=== PATIENT | female | born 1945 | race Caucasian/White ===

== ENCOUNTER 2019-04-01 10:45 | Inpatient (IN) | payer MEDICARE, SELFPAY ==
--- NOTE | 2019-04-01 11:47 | RAD ---
EXAM: Single view of the chest HISTORY: Altered mental status with vision changes COMPARISON: None FINDINGS: Single view of the chest shows a normal sized cardiomediastinal silhouette. There is no linnea dence of consolidation, mass, or pleural effusion. The bones are unremarkable. IMPRESSION: No evidence of acute cardiopulmonary disease
--- NOTE | 2019-04-01 11:52 | CT ---
EXAM: CT brain without contrast HISTORY: Blindness COMPARISON: None TECHNIQUE: Multiple contiguous axial images were obtained and a CT of the brain without contrast. FINDINGS: The brain is normal in morphology and attenuation without focal lesions or confluent areas of infarction. There is no evidence of hydrocephalus, intracranial hemorrhage, or extra-axial fluid collection. The calvarium and overlying soft tissues are unremarkable. The visualized paranasal sinuses and masto id air cells are well aerated. IMPRESSION: No evidence of acute intracranial abnormality
[2019-04-01 12:32] LABS: #Eosinphils 0.3 thou/uL (0.0-0.7); #Lymphocytes 1.7 thou/uL (1.20-3.40); #Monocytes 0.6 thou/uL (0.11-0.59); #Neutrophils 1.6 thou/uL (1.40-6.50); %Eosinophils 6.3 % (0.0-10.0); %Lymphocytes 40.8 % (21.0-51.0); %Monocytes 14.5 % (0.0-10.0); %Neutrophils 37.3 % (42.0-75.0); Hemoglobin 12.5 g/dL (12.0-16.0); Mean Corpuscular HGB CONC 33.8 g/dL (32.0-36.0); Mean Corpuscular Hemoglobin 31.3 pg (27.0-31.0); Mean Corpuscular Volume 92.7 fL (78.0-98.0); Mean Platelet Volume 6.2 fL (7.4-10.4); Platelet Count 198 thou/uL (130-400); RBC Distribution Width 11.7 % (11.5-14.5); Red Blood Cell (RBC) Count 3.99 mill/uL (4.20-5.40); White Blood Cell (WBC) Count 4.2 thou/uL (4.8-10.8)
[2019-04-01 12:43] LABS: Bacteria/HPF 4+ HPF (None Seen); Bilirubin Negative (Negative); Blood, Urine Negative (Negative); Clarity Clear (Clear); Glucose, Urine (Dipstick) Normal (Negative); Leukocyte 500 Leu/uL (Negative); Nitrite 2+ (Negative); Protein, Urine (Dipstick) Negative (Neg-Trace); Squamous Epithelial 0-3 HPF (0-3); Urobilinogen Normal mg/dL (Less than 2); WBC/HPF Greater than 50 HPF (0-3)
[2019-04-01 13:00] LABS: ALT (SGPT) 10 U/L (8-55); AST (SGOT) 14 U/L (5-34); Albumin 3.9 g/dL (3.4-4.8); Alkaline Phosphatase 51 U/L (40-110); Anion Gap 12 mmol/L (10-20); BUN (Urea Nitrogen) 17 mg/dL (9.8-20.1); Bilirubin, Total 0.3 mg/dL (0.2-1.2); Calc. Creatinine Clearance 0 mL/min (70-130); Carbon Dioxide 24 mmol/L (23-31); Chloride 109 mmol/L (98-107); Estimated GFR-MDRD 74; Glucose 91 mg/dL (83-110); Potassium 4.2 mmol/L (3.5-5.1); Protein, Total 6.9 g/dL (6.0-8.3); Sodium 141 mmol/L (136-145)
[2019-04-01] MEDS ORDERED: cefTRIAXone\\ROCEPHIN 2 GM VIAL ONE (14:20)
[2019-04-01] MEDS ORDERED: Clopidogrel Bisulfate 75 MG TAB ONE (14:50)
[2019-04-01] MEDS ORDERED: Ondansetron PF 4 MG/2 ML Vial IVP PRN ×2 (15:18→16:49)
[2019-04-01] MEDS ORDERED: Ondansetron ODT 4 MG TAB SL PRN (15:18)
[2019-04-01 15:51] VITALS: BMI 32.3
[2019-04-01] MEDS ORDERED: Ondansetron ODT 4 MG TAB PO PRN (16:49)
[2019-04-01] MEDS ORDERED: Acetaminophen 650 MG Suppository PR PRN (16:49)
--- NOTE | 2019-04-01 18:37 | HP ---
TIME OF ADMISSION: 1600. PRIMARY CARE PHYSICIAN: None. CHIEF COMPLAINT: Intermittent loss of vision x2 weeks. HISTORY OF PRESENT ILLNESS: Ms. Banerjee is a 73-year-old woman with a known history of psoriasis, who does not follow with a primary care physician, presented to the emergency department complaining of having trouble seeing. The patient states this has been going on for the last 2 weeks and states she suddenly has trouble seeing and is unable to pinpoint how long it lasts or how often it is occurring. The patient is somewhat a poor historian and tangential. On initial assessment, she first asked if I could call a long term to get her placement. The patient states she has a history of a growth on her left upper eyelid and states this tumor was removed in the early . She states another similar growth has developed in the left upper eyelid, however, it is extending down and covering her pupil. The patient closed her eyes to show me and then suddenly started saying she could not see again. The patient's eyes were shut, but she stated she felt as if they were open and that she was seeing black. I assisted the patient with opening her eyes. She states it feels as if her eyes are "glued shut." She does not have any drainage or watering from her eyes. No erythema or swelling. She states she feels her eyes get stuck and when it happens to her left eye, happens to her right eye as well. It appears she does not have complete loss of vision, but rather difficulty opening her eyes. She does states she has blurred vision and does not recall the last time she saw her business intelligence analyst. Does not recall the last time she had her eyeglasses changed. The patient reports having occasional headaches. Denies any nausea or vomiting. Reports having diarrhea greater than 1 week ago, but states this resolved. Denies any urinary symptoms. No abdominal pain. No chest pain, palpitations, or shortness of breath. She states she has difficulty standing straight due to scoliosis and uses her walker to get around. Also complaining of chronic bilateral knee pain. The patient recently moved from [facility] to [place] and has been staying at [place]. PAST MEDICAL HISTORY: 1. GERD. 2. Psoriasis. 3. Scoliosis. 4. Asthma. 5. Bilateral lower extremity edema due to previous leg surgery. 6. Growth over the left eyelid excised in the past. PAST SURGICAL HISTORY: 1. Bilateral leg surgery. She is unsure what type. 2. 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 SOCIAL HISTORY: The patient recently moved from [place]. Currently living at [facility] [facility]. She mobilizes with a walker. Denies any tobacco use, alcohol consumption, or illicit drug use. Her medical power of estate planning attorney is her daughter. She appears to be seeking placement into a long term. ALLERGIES: 1. ASPIRIN. 2. PENICILLIN. CURRENT MEDICATIONS: None. PHYSICAL EXAMINATION: GENERAL: The patient appears well developed, well nourished, is in no acute distress. VITAL SIGNS: Temperature 97.8, pulse 71, blood pressure 141/75, respirations 18, O2 saturation 94% on room air. HEENT: Normocephalic and atraumatic. Extraocular movements intact. The patient having difficulty with shutting her eyelids and then getting stuck and being unable to open both eyelids. No discharge or drainage. No erythema or swelling involving eyes. There is a small growth on the underside of her left upper eyelid extending slightly down. On exam when her eyelid is flipped outward, she states she feels relief as it is not pushing down and she is able open her eye better. Oropharynx is clear; however, she does have dryness and cracking of the lower lips as well as left ear due to psoriasis. There is scaling of the skin. No evidence of any secondary infection. NECK: Supple. LUNGS: Clear to auscultation bilaterally. CARDIAC: Regular rate and rhythm. ABDOMEN: Soft, nontender, nondistended. Normoactive bowel sounds present. EXTREMITIES: Mild lower extremity swelling, chronic. NEUROLOGICAL: Alert and oriented x3. Power slightly reduced in the left upper extremity. The patient unable to say how long it has been that way. Power equal in both lower legs. Gait affected by her scoliosis, no change as per the patient. Speech normal. LABORATORY DATA: White blood count 4.2, hemoglobin 12.5, hematocrit 37, platelets 198, neutrophils 37.3%. Sodium 141, potassium 4.2, BUN of 17, creatinine 0.76, GFR 74, glucose 71, calcium 9. LFTs unremarkable. Troponin negative. Albumin 3.9. Urinalysis was notable for 2+ nitrites, 500 leukocyte esterase, 4 to 6 red blood cells, greater than 50 white blood cells, and 4+ bacteria. IMAGING DATA: Chest x-ray demonstrated no acute intrathoracic abnormalities. CT of the brain, no evidence of acute intracranial abnormality. IMPRESSION AND PLAN: Ms. Banerjee is a pleasant 73-year-old woman, who has been referred for management of the followin. Urinary tract infection. The patient was started on antibiotics in the emergency department with Rocephin. We will continue IV antibiotics. Urine culture pending. 2. Vision changes. There was concern for transient ischemic attack due to patient complaining of intermittent loss of vision for the last 2 weeks. It appears that this is more so due to structural cause as the patient has a growth extending down from the left upper eyelid, which has been excised in the past. I witnessed her closing her eyes and her eyelids getting stuck, but the patient being under the impression that her eyes were open and she was seeing black. Consultation has been placed with Dr. Caicedo. She does have slight left upper extremity weakness, which is unclear if this is chronic or new. The patient reportedly with slurred speech in the emergency department, therefore referred for transient ischemic attack workup. We will obtain usual investigations including carotid Dopplers, echo, MRI of the brain. Consult has been placed to Neurology. Lipid panel to be done in the morning. She will need a bedside dysphagia screening done before she is cleared for diet. Carotid Dopplers are requested as well. 3. GI prophylaxis. Famotidine 20 mg IV b.i.d. 4. Deep venous thrombosis prophylaxis. Mechanical SCDs. The patient has scoliosis, which limits her ability to ambulate. PT/OT consult has been requested. 5. Code status, full. Her surrogate decision maker is her daughter, Abimbola Banerjee. The patient's case was discussed with Dr. Das, who agrees with plan of care as described above. Job ID: [id number]
[2019-04-01] MEDS ORDERED: PROVENTIL INHALER 6.7 G (200 INHALATIONS) INH PRN (20:17)
[2019-04-01] MEDS ORDERED: Famotidine/PF 20 mg/2ml Vial SLOW IVP SCH (21:00)
[2019-04-01] MEDS: Acetaminophen 325 MG TAB PO PRN (21:11)
[2019-04-01] MEDS: Atorvastatin Calcium 40 MG TAB PO SCH (21:11)
[2019-04-02] MEDS: Acetaminophen 325 MG TAB PO PRN ×3 (01:15→20:42)
[2019-04-02 05:48] LABS: #Eosinphils 0.3 thou/uL (0.0-0.7); #Lymphocytes 1.5 thou/uL (1.20-3.40); #Monocytes 0.6 thou/uL (0.11-0.59); #Neutrophils 2.2 thou/uL (1.40-6.50); %Basophils 0.8 % (0.0-1.0); %Eosinophils 5.8 % (0.0-10.0); %Lymphocytes 32.1 % (21.0-51.0); %Monocytes 13.1 % (0.0-10.0); %Neutrophils 48.2 % (42.0-75.0); Hemoglobin 12.5 g/dL (12.0-16.0); Mean Corpuscular HGB CONC 33.7 g/dL (32.0-36.0); Mean Corpuscular Hemoglobin 31.1 pg (27.0-31.0); Mean Corpuscular Volume 92.2 fL (78.0-98.0); Mean Platelet Volume 6.2 fL (7.4-10.4); Platelet Count 194 thou/uL (130-400); RBC Distribution Width 11.7 % (11.5-14.5); Red Blood Cell (RBC) Count 4.02 mill/uL (4.20-5.40); White Blood Cell (WBC) Count 4.6 thou/uL (4.8-10.8)
[2019-04-02 06:03] LABS: Anion Gap 10 mmol/L (10-20); BUN (Urea Nitrogen) 12 mg/dL (9.8-20.1); Calc. Creatinine Clearance 99 mL/min (70-130); Calcium 9.2 mg/dL (7.8-10.44); Carbon Dioxide 24 mmol/L (23-31); Cardiac Risk 4.4 (Less than 4.5); Chloride 107 mmol/L (98-107); Cholesterol 163 mg/dl (< 200 Desired); Estimated GFR-MDRD 87; Glucose 110 mg/dL (83-110); HDL Cholesterol 37 mg/dL (>60 Neg Risk); LDL Cholesterol, Calculated 104 mg/dL; Potassium 4.1 mmol/L (3.5-5.1); Sodium 137 mmol/L (136-145); Triglycerides 109 mg/dL (Less than 150)
--- NOTE | 2019-04-02 08:49 | CON ---
DATE OF CONSULTATION: 04/02/2019 CONSULTING PHYSICIAN: Hospitalist Services. IMPRESSION: Non-neurologic complaints of vision loss. PLAN: 1. You can proceed with her workup as you feel indicated. 2. The patient would like to be placed in a long-term. HISTORY OF PRESENT ILLNESS: Ms. Banerjee is a 73-year-old woman, who is currently living in a motel in [place]. She reports that her daughter is living in a long-term in [place]. She would like to get herself admitted to the long-term, but did not have any medical records. She complains that intermittently she cannot see. She reports feeling a bit weak when this occurs. She denies losing consciousness, is not associated with any headache, nausea, or vomiting. Her dizziness is not associated with any lateralized weakness or numbness. She reports the loss of vision last a minute or two. She has had some subjective complaints of chest pressure and discomfort. She had a CT scan on admission, which was unremarkable. Her CBC and serum chemistries were all within normal range. Her cholesterol ratio was 4.4. Urinalysis showed positive leukocytes and nitrites to suggest urinary tract infection. PAST MEDICAL HISTORY: Reports history of migraine headaches, GERD, psoriasis, and asthma. PAST SURGICAL HISTORY: Bilateral cataracts removed. SOCIAL HISTORY: No tobacco use. ALLERGIES: ASPIRIN, PENICILLIN. MEDICATIONS: None. PHYSICAL EXAMINATION: GENERAL: She is a well-nourished elderly woman, lying in bed, in no acute distress. VITAL SIGNS: Blood pressure 141/75, pulse 70, respirations 18, saturations 94%, and temperature 97.8. HEENT: Pupils are equal. Conjunctivae are clear. Oropharynx clear. The patient seemed to have difficulty keeping her eyelids open. She resisted eyelid opening when I tried to do it manually. NECK: Supple. EXTREMITIES: No cyanosis or edema. NEUROLOGIC: She was alert and cooperative. Her speech is fluent and clear. Cranial nerves were intact. Motor exam showed equal transport coordinator strength. There was no fix or drift. Sensation was intact to touch. No tremor. Dysmetria is present. Gait was not tested. Plantar responses were downgoing. IMAGING DATA: EKG, normal sinus rhythm. SUMMARY: This is a 73-year-old woman with subjective complaints of transient vision loss while she keeps her eyes closed inappropriately. The situation does not appear to be neurologic. I do not have anything to offer, otherwise. Job ID: [id number]
[2019-04-02] MEDS ORDERED: Prevnar 13-Val Conj/PF 0.5 ML SYRINGE IM ONE (09:00)
--- NOTE | 2019-04-02 10:02 | ULT ---
EXAM: Carotid Doppler PROVIDED CLINICAL HISTORY: TIA COMPARISON: None FINDINGS: Grayscale and color Doppler sonography with spectral analysis was performed of the extracranial carot id system bilaterally. Atherosclerotic plaque is seen in each carotid bulb. There is no evidence for a hemodynamically significant internal carotid artery stenosis by peak systolic velocity or ratio criteria. The vertebral arteries are not well visualized. IMPRESSION: No sonographic evidence for a hemodynamically significant internal carotid artery stenosis.
--- NOTE | 2019-04-02 12:48 | MRI ---
EXAM: Brain MRI Without contrast: HISTORY: Intermittent loss of vision left arm weakness COMPARISON: CT, 04/01/2019 FINDINGS: Multiplanar multisequence MRI examination of the brain is performed. The ventricles are within normal limits of size shape and position. No mass or midline shift. No evidence for intra or extra-axial hemorrhage. No evidence for abnormal restricted diffusion. No evidence for acute infarct. Normal-appearing flow voids are noted. The extracranial soft tissues and calvarial marrow signal appear within normal limits. Visualized sinuses and mastoids are unremarkable. Mild atrophy. IMPRESSION: No significant acute intracranial process. No mass or bleed. No acute infarct.
[2019-04-02] MEDS: cefTRIAXone\\ROCEPHIN 2 GM in Sodium Chloride 0.9% 100 ML IVPB SCH (13:23)
--- NOTE | 2019-04-02 13:30 | PDOC.HOSPP ---
- Subjective Subjective: Seen and examined. Patient currently undergoing ultrasound of the carotid. Patient states that she is unable to walk. Patient with transient vision changes , currently at her baseline. Patient with urinary tract infection responding to current IV antibiotics. Patient states that she would like to go to jail facility. - Objective Vital Signs & Weight: Vital Signs (12 hours) Temp Pulse Pulse Pulse Resp BP BP 04/02/19 11:00 98.2 F 65 15 04/02/19 09:15 70 70 109/57 L 107/56 L 04/02/19 07:38 97.1 F L 59 L 16 04/02/19 04:00 99.2 F 66 16 BP BP Pulse Ox 04/02/19 11:00 126/66 100 04/02/19 09:15 104/55 L 04/02/19 07:38 109/58 L 04/02/19 04:00 123/66 93 L Weight Weight 188 lb 6.4 oz I&O: 04/01/19 04/02/19 04/03/19 06:59 06:59 06:59 Intake Total 720 240 Output Total 1300 Balance -580 240 Result Diagrams: 04/02/19 05:34 04/02/19 05:34 Radiology Reviewed by me: Yes Hospitalist ROS - Review of Systems All other systems reviewed; all pertinent +/- noted in HPI/Subj - Medication Medications: Active Medications Generic Name Dose Route Start Last Admin Trade Name Freq PRN Reason Stop Dose Admin Acetaminophen 650 mg 04/01/19 16:49 04/02/19 08:18 Tylenol PO 650 mg Q4H PRN Administration Headache/Fever/Mild Pain (1-3) Atorvastatin Calcium 40 mg 04/01/19 21:00 04/01/19 21:11 Lipitor PO 40 mg HS SAMARA Administration Ceftriaxone Sodium 2 gm/ 100 mls @ 200 mls/hr 04/02/19 14:00 04/02/19 13:23 Sodium Chloride IVPB 100 mls 1400 SAMARA Administration Pantoprazole Sodium 40 mg 04/02/19 09:00 04/02/19 08:18 Protonix PO 40 mg DAILY SAMARA Administration Sodium Chloride 10 ml 04/01/19 16:49 04/01/19 21:11 Flush - Normal Saline IVF 10 ml Q12HR PRN Administration Saline Flush - Exam General Appearance: NAD Eye: anicteric sclera ENT: moist mucosa Neck: supple, symmetric, no lymphadenopathy Heart: no murmur, no gallops, no rubs Respiratory: CTAB, no wheezes, no rales, no ronchi, normal chest expansion Gastrointestinal: soft, non-tender, non-distended, no guarding, no rigidity Extremities: 2+ LE edema Skin: no lesions, no rashes Neurological: cranial nerve grossly intact, normal sensation to touch, no focal deficits Musculoskeletal: generalized weakness Psychiatric: normal affect, A&O x 3 Hosp A/P (1) TIA (transient ischemic attack) Code(s): G45.9 - TRANSIENT CEREBRAL ISCHEMIC ATTACK, UNSPECIFIED Status: Acute (2) HTN (hypertension) Code(s): I10 - ESSENTIAL (PRIMARY) HYPERTENSION Status: Acute (3) GERD (gastroesophageal reflux disease) Code(s): K21.9 - GASTRO-ESOPHAGEAL REFLUX DISEASE WITHOUT ESOPHAGITIS Status: Acute (4) Asthma Code(s): J45.909 - UNSPECIFIED ASTHMA, UNCOMPLICATED Status: Acute (5) HLD (hyperlipidemia) Code(s): E78.5 - HYPERLIPIDEMIA, UNSPECIFIED Status: Acute (6) Blurry vision Code(s): H53.8 - OTHER VISUAL DISTURBANCES Status: Acute - Plan Plan: medical unit telemetry stroke unit neurology consultation, recommendations appreciated TIA workup benign MRI brain noted CT had noted ultrasound carotid negative echocardiogram pending continue IV antibiotics for urinary tract infection, presumed E. coli sensitivity pending Physical therapy evaluation and treatment Occupational Therapy evaluation treatment blood pressure control patient wishes to go to jail facility on discharge.
[2019-04-02] MEDS: Atorvastatin Calcium 40 MG TAB PO SCH (20:41)
[2019-04-03] MEDS: Acetaminophen 325 MG TAB PO PRN ×2 (08:20→21:55)
[2019-04-03] MEDS ORDERED: traMADol HCl 50 MG TAB PO PRN (12:04)
--- NOTE | 2019-04-03 12:06 | PDOC.HOSPP ---
- Subjective Subjective: Seen and examined. Clinically improved. Patient has many complaints of chronic medical problems including back pain, knee pain, long toenails needing to see a cementing bulk material operator, and has not had her glasses changed in five years. I recommended to her that these chronic medical problems will need to be addressed in the outpatient setting. I evaluated the knee and there is no acute pathology evident , chronic osteoarthritis. - Objective Vital Signs & Weight: Vital Signs (12 hours) Temp Pulse Resp BP Pulse Ox 04/03/19 11:44 98.4 F 64 20 106/55 L 96 04/03/19 07:57 98.1 F 65 20 113/59 L 95 04/03/19 04:00 97.8 F 73 18 130/60 93 L Weight Weight 188 lb 6.4 oz I&O: 04/02/19 04/03/19 04/04/19 06:59 06:59 06:59 Intake Total 720 780 Output Total 1300 250 600 Balance -580 530 -600 Result Diagrams: 04/02/19 05:34 04/02/19 05:34 Radiology Reviewed by me: Yes Hospitalist ROS - Review of Systems All other systems reviewed; all pertinent +/- noted in HPI/Subj - Medication Medications: Active Medications Generic Name Dose Route Start Last Admin Trade Name Freq PRN Reason Stop Dose Admin Acetaminophen 650 mg 04/01/19 16:49 04/03/19 08:20 Tylenol PO 650 mg Q4H PRN Administration Headache/Fever/Mild Pain (1-3) Atorvastatin Calcium 40 mg 04/01/19 21:00 04/02/19 20:41 Lipitor PO 40 mg HS SAMARA Administration Ceftriaxone Sodium 2 gm/ 100 mls @ 200 mls/hr 04/02/19 14:00 04/02/19 13:23 Sodium Chloride IVPB 100 mls 1400 SAMARA Administration Pantoprazole Sodium 40 mg 04/02/19 09:00 04/03/19 08:20 Protonix PO 40 mg DAILY SAMARA Administration Sodium Chloride 10 ml 04/01/19 16:49 04/01/19 21:11 Flush - Normal Saline IVF 10 ml Q12HR PRN Administration Saline Flush - Exam General Appearance: NAD Eye: anicteric sclera ENT: normocephalic atraumatic, no oropharyngeal lesions, moist mucosa Neck: supple, symmetric, no JVD Heart: no murmur, no gallops, no rubs Respiratory: CTAB, no wheezes, no rales, no ronchi, normal chest expansion Gastrointestinal: soft, non-tender, no guarding, no rigidity Extremities: no edema Extremities - other findings: Right knee without joint effusion, no pain with passive ROM testing Skin: no lesions, no rashes Skin - other findings: Right knee skin without acute skin changes, no redness or signs of cellulit Neurological: cranial nerve grossly intact, no focal deficits Musculoskeletal: generalized weakness Psychiatric: normal affect, A&O x 3 Hosp A/P (1) TIA (transient ischemic attack) Code(s): G45.9 - TRANSIENT CEREBRAL ISCHEMIC ATTACK, UNSPECIFIED Status: Acute (2) HTN (hypertension) Code(s): I10 - ESSENTIAL (PRIMARY) HYPERTENSION Status: Acute (3) GERD (gastroesophageal reflux disease) Code(s): K21.9 - GASTRO-ESOPHAGEAL REFLUX DISEASE WITHOUT ESOPHAGITIS Status: Acute (4) Asthma Code(s): J45.909 - UNSPECIFIED ASTHMA, UNCOMPLICATED Status: Acute (5) HLD (hyperlipidemia) Code(s): E78.5 - HYPERLIPIDEMIA, UNSPECIFIED Status: Acute (6) Blurry vision Code(s): H53.8 - OTHER VISUAL DISTURBANCES Status: Acute - Plan Plan: medical unit telemetry stroke unit neurology consultation, recommendations appreciated TIA workup benign MRI brain noted CT head noted ultrasound carotid negative echocardiogram noted, preserved EF without significant valvular pathology continue IV antibiotics for urinary tract infection, E. coli sensitivity noted, transition to oral ABX Physical therapy evaluation and treatment Occupational Therapy evaluation treatment blood pressure control Will need to see podiatry and optometry in the outpatient setting for chronic problems Right knee without acute pathology, chronic osteoarthritis, recommended impoved mobility to strengthen the muscles and take strain off the joint, weight loss Tylenol arthritis as needed for chronic arthritic pains of the knee and back patient wishes to go to [facility] on discharge, CM consulted for D/c planning
[2019-04-03] MEDS: cefTRIAXone\\ROCEPHIN 2 GM in Sodium Chloride 0.9% 100 ML IVPB SCH (15:27)
[2019-04-03] MEDS: Atorvastatin Calcium 40 MG TAB PO SCH (21:55)
[2019-04-04] MEDS: Acetaminophen 325 MG TAB PO PRN ×3 (03:13→15:28)
[2019-04-04] MEDS: Atorvastatin Calcium 40 MG TAB PO SCH (21:00)
--- NOTE | 2019-04-05 04:16 | DIS ---
DATE OF ADMISSION: 04/02/2019 DATE OF DISCHARGE: 04/04/2019 REASON FOR HOSPITALIZATION: Blurry vision and dizziness. SIGNIFICANT FINDINGS: The patient was found to have a negative workup for transient ischemic attack and no stroke was identified. PROCEDURES PERFORMED AND TREATMENTS RENDERED: The patient was admitted to stroke unit under medical unit with telemetry. Patient has been monitored on continuous telemetry without events. The patient had a complete stroke workup including CT scan of the brain, carotid ultrasound, MRI of the brain, and echocardiogram in addition to metabolic workup-please see full report for details. Reports found to be benign and there was no acute stroke. Patient was found to have urinary tract infection, was started on appropriate antibiotic therapy, which was determined to be growing E coli in urine culture, which was sensitive to oral antibiotics. The patient was transitioned to oral antibiotics and recommended safe for discharge. The patient was weak and debilitated at baseline and was recommended long-term facility placement. Case Management consultation requested for assistance in placement in long-term facility. DISCHARGE MEDICATIONS: 1. Tylenol 650 mg q.6 hours p.r.n. pain or fever. 2. Albuterol HFA inhaler two puffs p.o. q.4 hours p.r.n. shortness of breath. 3. Atorvastatin 40 mg one tablet p.o. daily. 4. Cefpodoxime 200 mg one tablet p.o. b.i.d. for the next 5 days, 10 tablets. 5. Omeprazole 40 mg one tablet p.o. daily. 6. Zofran 4 mg p.o. q.6 hours p.r.n. nausea, vomiting. 7. Tramadol 50 mg q.6 hours p.r.n. severe pain. CONDITION ON DISCHARGE: Stable. SPECIFIC INSTRUCTIONS FOR THE PATIENT/FAMILY: 1. The patient recommended safe for transfer to long-term facility. 2. The patient is recommended to follow up with Optometry and Ophthalmology in the next 2 to 3 weeks-patient states that she has not had an eye exam in the last five years and her eyes have felt more blurry and her glasses are not being effective. 3. The patient is recommended to follow up with Podiatry in the outpatient clinic in the next 1 to 2 months. 4. Patient is recommended to follow up with all other specialists as directed. 5. Patient is recommended to return to acute care hospital immediately if signs or symptoms return, worsen, or any other new symptoms occur. HOSPITAL COURSE: Ms. Banerjee is a pleasant 73-year-old female, who presents to [facility] on 04/01/2019 with blurriness in her vision and dizziness. Patient was admitted to stroke unit with a CVA rule out. Patient had an extensive evaluation for CVA including consultation by Neurology-please see full consultation and progress notes for details. Patient had CT scan of the brain, carotid ultrasound, MRI of the brain, and echocardiogram-please see full radiographic imaging reports for full details. Imaging was found to be benign and Neurology recommending no other acute inpatient workup. Patient's metabolic workup was benign. Patient was found to have urinary tract infection. She was started on broad-spectrum antibiotics and culture was obtained. The culture was identified to be growing E coli and the patient was able to take oral medications due to sensitivity profile. Patient was transitioned to oral antibiotics and recommended safe for discharge to long-term facility. Patient has numerous chronic medical problems, for which she needs to follow up with primary care physician and specialist in the outpatient setting. Patient states that she has not seen an eye doctor in greater than five years and her glasses are no longer effective and she is having blurry vision. I recommended to the patient that she see her shellacker and biosecurity officer in the upcoming weeks. Patient states that she has long toenails and needs to see a sexual health physician, I recommended that she see a sexual health physician in the upcoming weeks. Patient states that she has chronic right knee pain and was diagnosed with osteoarthritis. There is no joint effusion or acute physical exam findings of the knee and I recommended that she continue working with Physical Therapy on strength training and mobility to regain the muscular nature of the leg so that she will take off the strain of the arthritis on this knee. I recommended the patient weight loss in order to limit the strain on the knee. I recommended to the patient that if knee pain continues to be persistent that she talk to her primary care physician about seeing Orthopedic Surgery on a nonemergent basis after nonsurgical options have been exhausted. Patient understands all of these directions and is happy with plan of care. Patient states that her daughter is in a long-term facility and she wishes to go to the same long-term facility so that she can get well with her family. Patient recommended safe for discharge to the long-term facility. Patient is recommended to take all medications as directed, to be reevaluated by admitting physician. Patient is recommended to follow up with all specialists as directed. Patient is recommended to return to acute care hospital immediately if signs or symptoms return, worsen, or any other new symptoms occur. Greater than 36 minutes spent coordinating care and discharge process for this patient. Job ID: [id number]
[2019-04-05] MEDS: Acetaminophen 325 MG TAB PO PRN (10:23)
--- NOTE | 2019-04-05 12:05 | PDOC.HOSPP ---
- Subjective Encounter Date: 04/05/19 Encounter Time: 09:45 Subjective: pt up in bed states she did not sleep well last night. - Objective Vital Signs & Weight: Vital Signs (12 hours) Temp Pulse Resp BP Pulse Ox 04/05/19 11:45 98.5 F 73 18 133/71 94 L 04/05/19 08:00 94 L 04/05/19 07:43 98.5 F 71 16 128/77 94 L 04/05/19 03:49 98.4 F 57 L 18 124/72 94 L Weight Weight 188 lb 6.4 oz I&O: 04/04/19 04/05/19 04/06/19 06:59 06:59 06:59 Intake Total 580 1060 Output Total 850 1200 Balance -270 -140 Result Diagrams: 04/02/19 05:34 04/02/19 05:34 Hospitalist ROS - Review of Systems Respiratory: denies: cough, dry, shortness of breath, hemoptysis, SOB with excertion, pleuritic pain, sputum, wheezing, other Cardiovascular: denies: chest pain, palpitations, orthopnea, paroxysmal noc. dyspnea, edema, light headedness, other Gastrointestinal: denies: nausea, vomiting, abdominal pain, diarrhea, constipation, melena, hematochezia, other - Medication Medications: Active Medications Generic Name Dose Route Start Last Admin Trade Name Freq PRN Reason Stop Dose Admin Acetaminophen 650 mg 04/01/19 16:49 04/05/19 10:23 Tylenol PO 650 mg Q4H PRN Administration Headache/Fever/Mild Pain (1-3) Atorvastatin Calcium 40 mg 04/01/19 21:00 04/04/19 21:00 Lipitor PO 40 mg HS SAMARA Administration Cefpodoxime Proxetil 200 mg 04/04/19 09:00 04/05/19 08:55 Vantin PO 200 mg Q12HR SAMARA Administration Pantoprazole Sodium 40 mg 04/02/19 09:00 04/05/19 08:55 Protonix PO 40 mg DAILY SAMARA Administration Sodium Chloride 10 ml 04/01/19 16:49 04/04/19 09:01 Flush - Normal Saline IVF 10 ml Q12HR PRN Administration Saline Flush - Exam Heart: negative: RRR, no murmur, no gallops, no rubs, normal peripheral pulses, irregular, diminshed peripheral pulses, murmur present, II/IV, III/IV Respiratory: negative: CTAB, no wheezes, no rales, no ronchi, normal chest expansion, no tachypnea, normal percussion, rales, rhonchi, tachypneic, wheezes Gastrointestinal: negative: soft, non-tender, non-distended, normal bowel sounds , no palpable masses, no hepatomegaly, no splenomegaly, no bruit, no guarding, no rigidity, tender to palpation, distended, diminished bowl sounds, voluntary guarding Extremities: negative: no cyanosis, no clubbing, no edema, 1+ LE edema, 2+ LE edema, clubbing Hosp A/P (1) Blurry vision Code(s): H53.8 - OTHER VISUAL DISTURBANCES Status: Acute (2) GERD (gastroesophageal reflux disease) Code(s): K21.9 - GASTRO-ESOPHAGEAL REFLUX DISEASE WITHOUT ESOPHAGITIS Status: Acute (3) HLD (hyperlipidemia) Code(s): E78.5 - HYPERLIPIDEMIA, UNSPECIFIED Status: Acute (4) HTN (hypertension) Code(s): I10 - ESSENTIAL (PRIMARY) HYPERTENSION Status: Acute (5) TIA (transient ischemic attack) Code(s): G45.9 - TRANSIENT CEREBRAL ISCHEMIC ATTACK, UNSPECIFIED Status: Acute (6) UTI (urinary tract infection) Status: Acute - Plan pt is being discharged today. she is allergic to asa. No change in her physical exam since yesterday
[2019-04-05 15:55] VITALS: BP 115/71; TEMP 98
[2019-04-05] MEDS ORDERED: Melatonin 3 MG TAB PO SCH (21:00)
== END 2019-04-05 15:56 | DRG 125 ==
LOC: ERS 10:45 → 2SE 14:20 → OBSVTOIN 04-02 13:27
PROVIDERS: ADMIT Internal Medicine; ATTEND Internal Medicine
DX: H53.8 Other visual disturbances (principal); N39.0 Urinary tract infection, site not specified; J45.909 Unspecified asthma, uncomplicated; M41.9 Scoliosis, unspecified; G43.909 Migraine, unspecified, not intractable, without status migrainosus; B96.20 Unspecified Escherichia coli [E. coli] as the cause of diseases classified elsewhere; Z88.0 Allergy status to penicillin; Z98.42 Cataract extraction status, left eye; Z98.41 Cataract extraction status, right eye; M17.11 Unilateral primary osteoarthritis, right knee; L40.9 Psoriasis, unspecified; G40.909 Epilepsy, unspecified, not intractable, without status epilepticus
CPT/HCPCS: 36415; 70450; 70551; 71045; 80048; 80053; 80061; 81003; 81015; 84484; 85025; 87077; 87086; 87186; 90471; 90670; 93005; 93306; 93880; 96365; G0009; J0696; J3490

== ENCOUNTER 2019-04-25 00:59 | Emergency (ER) | payer MEDICARE ==
[2019-04-25] MEDS ORDERED: Ondansetron PF 4 MG/2 ML Vial ONE (01:33)
[2019-04-25 01:47] LABS: #Eosinphils 0.1 thou/uL (0.0-0.7); #Lymphocytes 1.2 thou/uL (1.20-3.40); #Monocytes 0.5 thou/uL (0.11-0.59); #Neutrophils 4.3 thou/uL (1.40-6.50); %Basophils 0.6 % (0.0-1.0); %Eosinophils 1.7 % (0.0-10.0); %Lymphocytes 19.5 % (21.0-51.0); %Monocytes 8.3 % (0.0-10.0); %Neutrophils 69.9 % (42.0-75.0); Hemoglobin 13.1 g/dL (12.0-16.0); Mean Corpuscular Hemoglobin 31.1 pg (27.0-31.0); Mean Corpuscular Volume 91.4 fL (78.0-98.0); Mean Platelet Volume 6.1 fL (7.4-10.4); Platelet Count 172 thou/uL (130-400); RBC Distribution Width 11.5 % (11.5-14.5); Red Blood Cell (RBC) Count 4.21 mill/uL (4.20-5.40); White Blood Cell (WBC) Count 6.2 thou/uL (4.8-10.8)
[2019-04-25 01:56] LABS: Bacteria/HPF None Seen HPF (None Seen); Bilirubin Negative (Negative); Blood, Urine Negative (Negative); Clarity Clear (Clear); Glucose, Urine (Dipstick) Normal (Negative); Leukocyte 75 Leu/uL (Negative); Nitrite Negative (Negative); Protein, Urine (Dipstick) Negative (Neg-Trace); RBC/HPF 0-3 HPF (0-3); Squamous Epithelial 0-3 HPF (0-3); Urobilinogen Normal mg/dL (Less than 2)
[2019-04-25 02:44] LABS: ALT (SGPT) 12 U/L (8-55); AST (SGOT) 14 U/L (5-34); Albumin 4.1 g/dL (3.4-4.8); Alkaline Phosphatase 47 U/L (40-110); Anion Gap 9 mmol/L (10-20); BUN (Urea Nitrogen) 8 mg/dL (9.8-20.1); Bilirubin, Total 0.5 mg/dL (0.2-1.2); Calc. Creatinine Clearance 0 mL/min (70-130); Calcium 9.5 mg/dL (7.8-10.44); Carbon Dioxide 28 mmol/L (23-31); Chloride 103 mmol/L (98-107); Estimated GFR-MDRD 86; Globulin 3.4 g/dL (2.4-3.5); Glucose 110 mg/dL (83-110); Magnesium 1.9 mg/dL (1.6-2.6); Potassium 4.1 mmol/L (3.5-5.1); Protein, Total 7.5 g/dL (6.0-8.3); Sodium 136 mmol/L (136-145)
== END 2019-04-25 03:19 | disposition home or self-care (01) ==
LOC: ERS 00:59
DX: R11.2 Nausea with vomiting, unspecified (principal); K21.9 Gastro-esophageal reflux disease without esophagitis; J45.909 Unspecified asthma, uncomplicated; E78.5 Hyperlipidemia, unspecified; I10 Essential (primary) hypertension; Z79.899 Other long term (current) drug therapy
CPT/HCPCS: 36415; 51701; 80053; 81003; 81015; 83735; 84484; 85025; 93005; 96361; 96374; A4353; J2405